=== PATIENT | male | born 1990 | race American Indian/Alaskan Native ===

== ENCOUNTER 2016-10-16 12:27 | Emergency (ER) | payer OTHER ==
[2016-10-16 13:00] VITALS: BP 111/71
[2016-10-16] MEDS ORDERED: MOTRIN PO ONE (16:20)
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
== END 2016-10-16 20:32 | disposition left against medical advice (07) ==
LOC: ED 12:27
DX: M54.2 Cervicalgia (principal); V89.2XXA Person injured in unspecified motor-vehicle accident, traffic, initial encounter; Y93.89 Activity, other specified; Y99.9 Unspecified external cause status; Y92.410 Unspecified street and highway as the place of occurrence of the external cause
CPT/HCPCS: 72125

== ENCOUNTER 2016-10-23 10:10 | Emergency (ER) | payer OTHER ==
[2016-10-23] MEDS ORDERED: MOTRIN PO ONE (12:42)
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
[2016-10-23 14:43] VITALS: BP 107/72
== END 2016-10-23 14:40 | disposition home or self-care (01) ==
LOC: ED 10:10
DX: M54.6 Pain in thoracic spine (principal); V49.59XA Passenger injured in collision with other motor vehicles in traffic accident, initial encounter; X58.XXXA Exposure to other specified factors, initial encounter; Y93.9 Activity, unspecified; Y92.9 Unspecified place or not applicable; Y99.9 Unspecified external cause status
CPT/HCPCS: 72070